=== PATIENT | female | born 1940 | race African-American/Black ===

== ENCOUNTER 2018-05-10 05:48 | Inpatient (IN) | payer BC, OTHER ==
[2018-05-10] VITALS (7 sets, daily range): BP systolic 134–167; BP diastolic 70–96
[~2018-05-10] VITALS: Ht 160 cm; Wt 102.1 kg
--- NOTE | 2018-05-10 05:51 | NUR ---
ED Nurse Note: Received report. Pt BIBA from home, non-ambulatory, AAOx4, c/o right knee pain 10/10 when she woke up and could not move right leg nor walk. Pt has hx of knee problems for 2 mos now. Pedal pulses palpated and BLE pulses are strong, and skin is warm to touch and capillary refill <3 secs. Will monitor and carry out ER MD's orders.
[2018-05-10] MEDS ORDERED: SYNTHROID25 MCG ORAL (05:56)
--- NOTE | 2018-05-10 05:59 | Emergency Room Report ---
History of Present Illness General Chief Complaint: Pain Source: Patient (Tai Hubbard MD) Source: Patient (ArturoelenaKrishan DO) Present Illness HPI This is a 77-year-old female with multiple medical problem. She presents with chief complaint right knee pain. This is a chronic problem that has been ongoing for months. She saw orthopedic Dr. chery. She had injection. She was supposed to have injection of mcc later. She woke up tonight with severe right knee pain. Pain is diffuse but mostly lateral. Sharp pain. Pain is 10 out of 10 radiating upward. Worse with movement. Unable to bear weight. Unable to lift her leg because of the pain. No trauma. No fever. (Tai Hubbard MD) Allergies: Coded Allergies: LATEX (Unverified Allergy, Unknown, 05/10/18) PENICILLINS (Unverified Allergy, Unknown, 05/10/18) Uncoded Allergies: CONTRAST DYE (Allergy, Unknown, 05/10/18) Patient History Past Medical History: see triage record, old chart reviewed Past Surgical History: other Pertinent Family History: none Social History: Denies: smoking Last Menstrual Period: 3 decades ago Now: No Immunizations: other Reviewed Nursing Documentation: PMH: Agreed; PSxH: Agreed (Tai Hubbard MD) Nursing Documentation-PMH Hx Hypertension: Yes - high cholesterol, Hx Neurological Problems: Yes - thyroidectomy, arthritis (Tai Hubbard MD) Review of Systems Eye: Denies: eye pain, blurred vision ENT: Denies: ear pain, nose congestion, throat swelling Respiratory: Denies: cough, shortness of breath Cardiovascular: Denies: chest pain, palpitations Gastrointestinal: Denies: abdominal pain, diarrhea, nausea, vomiting Musculoskeletal: Reports: joint pain; Denies: back pain Skin: Denies: rash Neurological: Denies: headache, numbness Endocrine: Denies: increased thirst, increased urine Hematologic/Lymphatic: Denies: easy bruising All Other Systems: negative except mentioned in HPI (Tai Hubbard MD) Physical Exam Vital Signs Date Time Temp Pulse Resp B/P (MAP) Pulse Ox O2 Delivery O2 Flow Rate FiO2 05/10/18 05:43 97.7 80 18 150/96 98 Room Air vitals unremarkable Sp02 EP Interpretation: reviewed, normal General Appearance: well appearing, no apparent distress, alert, obese Head: normocephalic, atraumatic Eyes: bilateral eye PERRL, bilateral eye EOMI ENT: hearing grossly normal, normal pharynx Neck: full range of motion, supple, no meningismus Respiratory: chest non-tender, lungs clear, normal breath sounds Cardiovascular #1: regular rate, rhythm, no murmur Gastrointestinal: normal bowel sounds, non tender, no mass, no organomegaly, no bruit, non-distended Musculoskeletal: back normal, normal range of motion, other - Right knee: There is no redness or warmth. There is tenderness lateral aspect of the knee. His range of motion secondary to pain. Knee is otherwise stable. Sensation normal. Popliteal pulses normal. Neurologic: alert, oriented x3 Psychiatric: mood/affect normal Skin: warm/dry (Tai Hubbard MD) Medical Decision Making Diagnostic Impression: Primary Impression: Osteoarthritis of right knee Qualified Codes: M17.11 - Unilateral primary osteoarthritis, right knee Additional Impressions: Intractable pain Dehydration ER Course Patient presents with acute onset of right knee pain. No evidence of any septic joint. No evidence any fracture. This may be a meniscus versus ligament tear from wearing care. Symptom unlikely to be DVT or acute arterial occlusion. I will sign this patient out to Dr. Kearns for final disposition. If she can' t walk, may knee admission for rehabilitation. (Tai Hubbard MD) ER Course Please refer to the initial note for the history exam and workup At this time patient on reevaluation still had some continued discomfort however improved Patient still unable to stand or ambulate she is usually ambulatory patient also having difficulty time taking oral medication has been taking broad medications including steroids with increased nausea Given the patient's age debilitation acutely and presentation Patient is admitted for further inpatient care Labs Test 05/10/18 06:00 White Blood Count 7.0 K/UL (4.8-10.8) Red Blood Count 4.15 M/UL (4.20-5.40) Hemoglobin 13.1 G/DL (12.0-16.0) Hematocrit 40.0 % (37.0-47.0) Mean Corpuscular Volume 97 FL (80-99) Mean Corpuscular Hemoglobin 31.6 PG (27.0-31.0) Mean Corpuscular Hemoglobin Concent 32.8 G/DL (32.0-36.0) Red Cell Distribution Width 12.1 % (11.6-14.8) Platelet Count 219 K/UL (150-450) Mean Platelet Volume 7.9 FL (6.5-10.1) Neutrophils (%) (Auto) 74.2 % (45.0-75.0) Lymphocytes (%) (Auto) 20.1 % (20.0-45.0) Monocytes (%) (Auto) 4.2 % (1.0-10.0) Eosinophils (%) (Auto) 0.1 % (0.0-3.0) Basophils (%) (Auto) 1.5 % (0.0-2.0) Sodium Level 142 MMOL/L (136-145) Potassium Level 3.7 MMOL/L (3.5-5.1) Chloride Level 105 MMOL/L (98-107) Carbon Dioxide Level 29 MMOL/L (21-32) Anion Gap 8 mmol/L (5-15) Blood Urea Nitrogen 17 mg/dL (7-18) Creatinine 1.0 MG/DL (0.55-1.30) Estimat Glomerular Filtration Rate mL/min (>60) Glucose Level 115 MG/DL (74-106) Calcium Level 8.3 MG/DL (8.5-10.1) (Krishan Kearns DO) Other X-Ray Diagnostic Results Other X-Ray Diagnostic Results : X-Ray ordered: Right knee x-rays Indication: Pain EP Interpretation: Yes Interpretation: no dislocation, no soft tissue swelling, no fractures, other - degenerative changes with osteophytes Impression: Other - OA Electronically Signed by: Tai Hubbard MD (Tai Hubbard MD) Last Vital Signs Date Time Temp Pulse Resp B/P (MAP) Pulse Ox O2 Delivery O2 Flow Rate FiO2 05/10/18 05:43 97.7 80 18 150/96 98 Room Air Status: improved (Tai Hubbard MD) Status: improved (Krishan Kearns DO) Disposition: ADMITTED INPATIENT Condition: Serious Tai Hubbard MD May 10, 2018 05:59 Krishan Kearns DO May 10, 2018 10:07
[2018-05-10] MEDS ORDERED: Ketorolac 30mg Inj IV ONE (06:00)
[2018-05-10] MEDS ORDERED: Morphine Sulfate 4mg/ml Inj (IV USE ONLY) IVP ONE (06:00)
[2018-05-10 06:30] LABS: ANION GAP 8 mmol/L (5-15); BLOOD UREA NITROGEN 17 mg/dL (7-18); CALCIUM 8.3 MG/DL (8.5-10.1); CARBON DIOXIDE 29 MMOL/L (21-32); CHLORIDE 105 MMOL/L (98-107); POTASSIUM 3.7 MMOL/L (3.5-5.1); SODIUM 142 MMOL/L (136-145)
[2018-05-10 06:32] LABS: BASOPHILS % (AUTO) 1.5 % (0.0-2.0); EOSINOPHILS % (AUTO) 0.1 % (0.0-3.0); HEMOGLOBIN 13.1 G/DL (12.0-16.0); LYMPHOCYTES % (AUTO) 20.1 % (20.0-45.0); MEAN CORPUSCULAR VOLUME 97 FL (80-99); MONOCYTES % (AUTO) 4.2 % (1.0-10.0); NEUTROPHILS % (AUTO) 74.2 % (45.0-75.0); PLATELET COUNT 219 K/UL (150-450); RED BLOOD COUNT 4.15 M/UL (4.20-5.40); RED CELL DISTRIBUTION WIDTH 12.1 % (11.6-14.8)
--- NOTE | 2018-05-10 07:09 | NUR ---
HAND-OFF: Report given to Alyx RN. Pt stable. Endorsed possible admission to day shift RN.
--- NOTE | 2018-05-10 07:17 | NUR ---
ED Nurse Note: received pt from Martha. Pt is in [facility], A/Ox4. Brought in by ambulance from home due to right knee pain 12/23. Per pt, she is ambulatory at home but she was not able to walk due to pain on right knee.
--- NOTE | 2018-05-10 07:19 | NUR ---
ED Nurse Note: Apolinar pt's son,
--- NOTE | 2018-05-10 08:00 | NUR ---
ED Nurse Note: Apolinar, pt's son, . Per pt's son via phone, pt does not know which medications that pt takes at this time at home. He will bring them once pt is admitted and confirm with the patient.
--- NOTE | 2018-05-10 09:35 | NUR ---
ED Nurse Note: Dr. Herndon at the bedside.
--- NOTE | 2018-05-10 10:06 | NUR ---
ED Nurse Note: Telephone report given to Aruna COOLEY from 3E. Informed RN that pt's son will bring the medication list and he is aware of the pt's transfer. Pt remains stable. Will send the pt up soon.
--- NOTE | 2018-05-10 10:44 | NUR ---
TRANSFER TO FLOOR: Patient transferred to #[id number] as ordered via gurney by HARESH Marsh. Belongings given to pt. Family and or S/O informed of transfer. Skin intact, no s/s of distress.
--- NOTE | 2018-05-10 11:15 | History and Physical Report ---
DATE OF ADMISSION: 05/10/2018 HISTORY OF PRESENT ILLNESS: This is a very pleasant 77-year-old female, who came to the hospital with several different complaints. Her main complaint was that she had right knee pain that she was unable to ambulate. She states she has been toileting in her bed because she could not get up. She also apparently has had a right knee injection. She also reports that she is having difficulty with ambulating and not able to eat or drink because of severe right knee pain. The patient was seen and admitted to the hospital for subsequent management and care. PAST MEDICAL HISTORY: Notable for removal of chin tumor, history of parotid duct left side, history of previous thyroidectomy, history of uterine surgery. Notable for hypertension, hyperlipidemia, degenerative arthritis. ALLERGIES: To latex, penicillin, and contrast dye. HOME MEDICATIONS: Reviewed and reconciled in the chart. REVIEW OF SYSTEMS: She denies any headaches, hematemesis, melena, or hematochezia. PHYSICAL EXAMINATION: GENERAL: Reveals a 77-year-old female. HEENT: Unremarkable. LUNGS: Clear breath sounds bilaterally. ABDOMEN: Soft. EXTREMITIES: There is no edema. NEUROLOGIC: Nonfocal. MUSCULOSKELETAL: The patient has discomfort on moving the right knee in flexion and extension. SKIN: She also has evidence of previous chin and thyroid surgical scars. LABORATORY DATA: Her laboratory testing shows normal CBC and BMP. Glucose 115. Imaging studies, none. IMPRESSION: 1. Degenerative arthritis. 2. Severe right knee pain. 3. Failure to thrive. 4. Previous thyroidectomy. 5. History of parotid duct stone. DISCUSSION: We will admit her to the hospital. Start IV fluids. Pain control. We will consult Orthopedics. We will obtain imaging studies of the right knee. The patient may benefit from another knee injection. We will follow carefully. Joshua Herndon M.D. DR: Missy JOB#: [id number] CC:
--- NOTE | 2018-05-10 11:49 | Diagnostic Imaging Report ---
Indication: Pain Knee pain/trauma 3 views of the right knee were obtained. Findings: No acute fracture, malalignment, or joint effusion are identified. Joint space narrowing and osteophyte formation demonstrated. Impression: Negative for acute findings.
[2018-05-10] MEDS: HydrALAZINE 10mg Tab ORAL SCH ×2 (15:26→21:00)
[2018-05-10] MEDS: Carvedilol 6.25mg Tab ORAL SCH ×2 (15:26→21:00)
[2018-05-10] MEDS ORDERED: Norco 5mg/325mg tab ORAL PRN (15:30)
--- NOTE | 2018-05-10 16:57 | NUR ---
CASE MANAGEMENT: INITIAL REVIEW 05/10/2018 77 YO F BIBA FROM HOME CC: KNEE PAIN PMHx: HIGH CHOLESTEROL. THYROIDECTOMY. ARTHRITIS. SI:UNABLE TO AMBULATE T 97.7 HR 80 RR 18 B/P 150/96 SATS 98% ON RA GLU 115 CA 8.3 IS: MORPHINE IV X1 TORADOL IV X1 ZOFRAN IV X1 PATIENT ADMITTED TO MED/SURG 05/10/2018 @ 0705 DCP: PATIENT TO BE DISCHARGED TO HOME ONCE MEDICALLY CLEARED. PLAN OF CARE: IVF PAIN CONTROL ORTHO CONSULT
--- NOTE | 2018-05-10 19:00 | NUR ---
HAND-OFF: Report given to SANTA Wagner.
--- NOTE | 2018-05-10 19:00 | NUR ---
NURSE NOTES: [facility] . patient denies any pain at this time . no sob /no n/v noted LAC g#18 H/L Patent and intact . call light within reach bed in low position at all times . will continue to monitor .
--- NOTE | 2018-05-10 20:00 | NUR ---
NURSE NOTES:Patient seen by DR. Mariano Hurd . no new orders at this time .
[2018-05-10] MEDS ORDERED: Heparin 5000 units/ml inj SUBQ SCH (21:00)
--- NOTE | 2018-05-10 21:50 | NUR ---
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 H/L and armband removed . patient personal belongings given to patient and Son . DR Herndon, Joshua Kincaid nursing supervisor knitting and Cornelius concepcion notified and aware patient AMA at 23:00 pm and well down via wheelchair patient and Son went home in private car
--- NOTE | 2018-05-11 02:15 | Consultation ---
DATE OF CONSULTATION: 05/10/2018 ORTHOPEDIC CONSULTATION CONSULTING PHYSICIAN: Vickey Quintana M.D. CHIEF COMPLAINT: Right knee pain. HISTORY OF PRESENT ILLNESS: The patient is a 77-year-old female, who subsequently had significant right knee pain, difficulty with extension, ambulation. She is admitted because she was unable to ambulate with right knee pain. She does have a history of right knee arthritis. She subsequently had a cortisone injection previously. I think she is scheduled to have some viscosupplementation treatment as an outpatient. PAST MEDICAL HISTORY: Reviewed from the intake chart. SURGICAL HISTORY: Reviewed from the intake chart. MEDICATIONS: Reviewed from the intake chart. PHYSICAL EXAMINATION: GENERAL: The patient is alert. She is resting comfortably in bed. VITAL SIGNS: Afebrile. Stable vital signs. EXTREMITIES: Right knee examination shows moderate swelling. There is some moderate effusion and pain on medial joint line. Pain with extension. The patient has difficulty to perform a straight leg. Posterior calf is soft. IMAGING STUDY: Nonweightbearing knee x-ray showed advanced osteoarthritis in the medial compartments. ASSESSMENT: Right knee osteoarthritis. DISCUSSION: What I recommend is to go ahead and consider cortisone injection. I discussed with her treatment options. She is not sure if she wants to get a cortisone injection. At this point, I discussed with her alternatives. She can follow up with her outpatient orthopedic surgeon and will follow through with the viscosupplementation treatment. If she still has issues, then consideration for total knee arthroplasty would be reasonable. Vickey Quintana M.D. DR: CONNIE JOB#: [id number] CC:
--- NOTE | 2018-05-11 16:28 | Discharge Summary ---
Discharge Summary Discharge Summary _ DATE OF ADMISSION: 05/10/2018 DATE OF DISCHARGE: 05/10/2018 Patient left AGAINST MEDICAL ADVICE REASON FOR ADMISSION: 77 years old female with past medical history of left salivary gland obstruction, status post surgery, history of thyroidectomy, uterine surgery, hypertension, hyperlipidemia, degenerative arthritis, hypothyroidism, presented to emergency department with complaint of right knee pain and inability to ambulate. She had prior right knee injection. Upon evaluation vital signs revealed elevated blood pressure 150/96. Laboratory workup revealed no leukocytosis, stable hemoglobin and hematocrit. Stable electrolytes and renal parameters. Chest x-ray of the right knee reveal degenerative changes with osteophytes. No acute fracture, misalignment of joint effusion were identified. Patient was admitted for further management. CONSULTANTS: ortho surgery Dr. Quintana HOSPITAL COURSE: Patient admitted to medical surgical floor and started on the IV fluids. Pain management was addressed. Plan admit to conclusion orthopedic surgeon consulted. Orthopedic surgeon seen and evaluated patient and reviewed x-ray. According to surgeon, x-ray of the right knee demonstrated advanced osteoarthritis in the medial compartment. Orthopedic surgeon recommended to consider cortisone injection. Plan of care was discussed with the patient. Patient was not sure if she wanted cortisone injection. Alternatives were discussed with patient. Patient will follow up with her outpatient orthopedic surgeon for visco supplementation treatment. If she still have issues, consideration for total knee arthropathy would be reasonable. Supportive care provided. DVT prophylaxis provided. Home home medication were resumed, including antihypertensive regimen with beta- shakir and hydralazine. Levothyroxine continued. Patient decided to leave AGAINST MEDICAL ADVICE. The risks and consequences of signing AGAINST MEDICAL ADVICE were discussed with patient in detail. Patient verbalized understanding, nevertheless signed AMA form and left. FINAL DIAGNOSES: Degenerative osteoarthritis right knee Severe right knee pain due to degenerative arthritis HTN Previous thyroidectomy History of parotid duct obstruction I have been assigned to dictate discharge summary for this account. I was not involved in the patient's management. Lily Grier NP May 11, 2018 16:28
== END 2018-05-10 23:35 | disposition home or self-care (01) | DRG 554 ==
LOC: EDBD 05:48 → EMR 06:14 → 3E 07:05 → EDBEDREQ 09:21
DX: M17.11 Unilateral primary osteoarthritis, right knee (principal); I10 Essential (primary) hypertension; E89.0 Postprocedural hypothyroidism; E78.5 Hyperlipidemia, unspecified; Z88.0 Allergy status to penicillin; Z91.041 Radiographic dye allergy status; Z91.040 Latex allergy status
CPT/HCPCS: 36415; 80048; 82962; 85025; 96374; 96375; 99285; J2405